=== PATIENT | female | born 2000 | race Caucasian/White ===

== ENCOUNTER → 2020-04-18 | Outpatient (CLI) | payer BC | END | disposition home or self-care (01) | LOC: RAD 14:48 | PROVIDERS: ATTEND Emergency Medicine | DX: N26.1 Atrophy of kidney (terminal) (principal); N13.30 Unspecified hydronephrosis | CPT/HCPCS: 76700 ==

== ENCOUNTER 2020-04-20 11:01 | Emergency (ER) | payer BC ==
[~2020-04-20] VITALS: Ht 165.1 cm; Wt 57.7 kg
[2020-04-20 11:47] LABS: BASOPHILS % (AUTO) 1 % (0-1); EOSINOPHILS % (AUTO) 1 % (1-7); LYMPHOCYTES % (AUTO) 30 % (22-44); MEAN CORPUSCULAR HEMOGLOBIN 28.5 pg (27.0-34.8); MEAN CORPUSCULAR HGB CONC 33.4 g/dL (32.4-35.8); MEAN PLATELET VOLUME 8.8 fL (7.4-10.4); MONOCYTES % (AUTO) 6 % (2-9); NEUTROPHILS % (AUTO) 62 % (42-75); PLATELET COUNT 216 x10^3/uL (130-400); RED CELL DISTRIBUTION WIDTH 13.3 % (9.6-15.2)
[2020-04-20 11:53] LABS: MD NO
[2020-04-20 12:00] LABS: ALANINE AMINOTRANSFERASE 11 U/L (12-78); ALBUMIN 4.5 g/dL (3.4-5.0); ANION GAP 5 mmol/L (5-15); CALCIUM 9.5 mg/dL (8.5-10.1); CHLORIDE 110 mmol/L (98-107)
[2020-04-20 12:05] LABS: ALKALINE PHOSPHATASE 73 U/L (45-117); BILIRUBIN,TOTAL 0.9 mg/dL (0.2-1.0); CREATININE 0.73 mg/dL (0.55-1.02)
--- NOTE | 2020-04-20 13:59 | NUR ---
PT RESTING IN [facility], URINE SAMPLE SENT TO LAB. PT UPDATED ON POC, NO COMPLAINTS AT THIS TIME.
[2020-04-20 14:05] LABS: MICROSCOPIC NOT IND
--- NOTE | 2020-04-20 14:27 | NUR ---
URINE RESULTED PT PLACED IN RECHECK
[2020-04-20 15:26] VITALS: BP 120/78
--- NOTE | 2020-04-20 15:26 | NUR ---
PT UPDATED ON POC. PT RESTING IN [facility].
== END 2020-04-20 15:46 | disposition home or self-care (01) ==
LOC: ED 15:15
DX: N13.30 Unspecified hydronephrosis (principal); R10.9 Unspecified abdominal pain; R11.2 Nausea with vomiting, unspecified
CPT/HCPCS: 36415; 74176; 80053; 81003; 84703; 85025; 99284

== ENCOUNTER → 2020-04-21 | Outpatient (CLI) | payer BC ==
[~2020-04-21] MED LIST: OMNIPAQUE 350 MG/ML, 150 ML BOTTLE ONE
== END | disposition home or self-care (01) ==
LOC: RAD 07:05
PROVIDERS: ATTEND Urology
DX: N28.1 Cyst of kidney, acquired (principal); N83.202 Unspecified ovarian cyst, left side; N13.0 Hydronephrosis with ureteropelvic junction obstruction
CPT/HCPCS: 74178; Q9967

== ENCOUNTER → 2021-02-02 | Outpatient (CLI) | payer BC | END | disposition home or self-care (01) | LOC: RAD 10:16 | PROVIDERS: ATTEND Internal Medicine Gastroenterology | DX: R10.13 Epigastric pain (principal); R11.0 Nausea | CPT/HCPCS: 78264; A9541 ==